=== PATIENT | male | born 1975 | race African-American/Black ===

== ENCOUNTER 2021-06-01 13:16 | Inpatient (IN) | payer OTHER ==
[2021-06-01 15:17] VITALS: BMI 24.3
[2021-06-01] MEDS ORDERED: guaiFENesin 200 MG/10 ML 10 ML UNIT-DOSE CUPS PO PRN (17:11)
[2021-06-01] MEDS ORDERED: ACETAMINOPHEN 325 MG TABLET (FP) PO PRN (17:11)
[2021-06-01] MEDS ORDERED: P-EPHED 60MG/TRIPROLIDI 2.5MG TABLET PO PRN (17:11)
[2021-06-01] MEDS ORDERED: LOPERAMIDE HCL 2 MG CAPSULE PO PRN (17:11)
[2021-06-01] MEDS ORDERED: MAG HYDROX/AL HYDROX/SIMETH 30 ML UNIT-DOSE CUP PO PRN (17:11)
[2021-06-01] MEDS ORDERED: MAGNESIUM HYDROX 2400MG/30ML ORAL SUSPENSION 30 ML CUP PO PRN (17:11)
[2021-06-01] MEDS ORDERED: MAGNESIUM CITRATE 300 ML BOTTLE PO PRN (17:11)
[2021-06-01] MEDS ORDERED: TUBERCULIN PPD 5 TU/0.1ML VIAL ID ONE (19:33)
[2021-06-01] MEDS: PRENATAL VITAMINS W/ FOLIC ACID TABLET (FP) PO SCH (19:45)
[2021-06-01] MEDS: THIAMINE HCL 100 MG TABLET (FP) PO SCH (23:44)
[2021-06-01] MEDS: MELATONIN 5 MG TABLETS PO SCH (23:44)
[2021-06-02] MEDS ORDERED: PT OWN MED DRAWER 7, Y5N ONE (06:26)
[2021-06-02] MEDS: LEVOTHYROXINE NA 88 MCG TABLET (FP) PO SCH (06:27)
[2021-06-02] MEDS: PRENATAL VITAMINS W/ FOLIC ACID TABLET (FP) PO SCH (10:45)
[2021-06-02 12:12] LABS: HEMATOCRIT 43.3 % (35.4-49); HEMOGLOBIN 14.2 GM/dL (11.7-16.9); MCH 28.4 pg (25.7-33.7); MCHC 32.8 g/dl (32.0-35.9); MEAN CELL VOLUME 86.8 fl (80-96); MEAN PLT VOLUME 10.6 fl (7.5-11.1); PLATELET COUNT 179 10^3/uL (134-434); RBC 4.98 M/mm3 (4.00-5.60); RDW 13.6 % (11.9-15.9); WHITE BLOOD COUNT 3.4 K/mm3 (4.0-10.0)
[2021-06-02 12:44] LABS: BLOOD UREA NITROGEN 11.9 mg/dL (7-18); CALCIUM 8.9 mg/dL (8.5-10.1)
[2021-06-02 12:45] LABS: ALBUMIN 3.5 g/dl (3.4-5.0)
[2021-06-02 12:47] LABS: CREATININE 0.9 mg/dL (0.55-1.3)
[2021-06-02 12:49] LABS: BILIRUBIN,TOTAL 0.8 mg/dL (0.2-1); TOT PROT 6.4 g/dl (6.4-8.2)
[2021-06-02 16:46] LABS: PH,URINE 5.5 (5.0-8.0); URINE APPEARANCE CLEAR; URINE BILIRUBIN NEGATIVE (NEGATIVE); URINE COLOR YELLOW; URINE GLUCOSE (UA) NEGATIVE (NEGATIVE); URINE KETONE NEGATIVE (NEGATIVE); URINE LEUK ESTERASE NEGATIVE (NEGATIVE); URINE NITRITE NEGATIVE (NEGATIVE); URINE PROTEIN NEGATIVE (NEGATIVE); URINE UROBILINOGEN 0.2 mg/dL (0.2-1.0)
[2021-06-02] MEDS: MELATONIN 5 MG TABLETS PO SCH (21:10)
[2021-06-02] MEDS: THIAMINE HCL 100 MG TABLET (FP) PO SCH (21:11)
[2021-06-03] MEDS ORDERED: PT OWN MED DRAWER 7, Y5N ONE (02:54)
[2021-06-03] MEDS: LEVOTHYROXINE NA 88 MCG TABLET (FP) PO SCH (06:16)
[2021-06-03] MEDS: PRENATAL VITAMINS W/ FOLIC ACID TABLET (FP) PO SCH (09:52)
[2021-06-03] MEDS: MELATONIN 5 MG TABLETS PO SCH (23:00)
[2021-06-03] MEDS: THIAMINE HCL 100 MG TABLET (FP) PO SCH (23:00)
[2021-06-04] MEDS ORDERED: PT OWN MED DRAWER 7, Y5N ONE (02:40)
[2021-06-04] MEDS: LEVOTHYROXINE NA 88 MCG TABLET (FP) PO SCH (06:35)
[2021-06-04] MEDS: PRENATAL VITAMINS W/ FOLIC ACID TABLET (FP) PO SCH (09:41)
[2021-06-04] MEDS: THIAMINE HCL 100 MG TABLET (FP) PO SCH (23:23)
[2021-06-04] MEDS: MELATONIN 5 MG TABLETS PO SCH (23:23)
[2021-06-05] MEDS ORDERED: PT OWN MED DRAWER 7, Y5N ONE (03:35)
[2021-06-05] MEDS: LEVOTHYROXINE NA 88 MCG TABLET (FP) PO SCH (06:19)
[2021-06-05] MEDS: PRENATAL VITAMINS W/ FOLIC ACID TABLET (FP) PO SCH (10:16)
[2021-06-05 14:07] LABS: SARS-CoV-2 NAA Not Detected (Not Detected)
[2021-06-05] MEDS: BACITRACIN 0.9 GM PACKET TP SCH (21:44)
[2021-06-05] MEDS: THIAMINE HCL 100 MG TABLET (FP) PO SCH (21:45)
[2021-06-05] MEDS: MELATONIN 5 MG TABLETS PO SCH (21:45)
[2021-06-06] MEDS ORDERED: PT OWN MED DRAWER 7, Y5N ONE (04:00)
[2021-06-06] MEDS: LEVOTHYROXINE NA 88 MCG TABLET (FP) PO SCH (06:24)
[2021-06-06] MEDS: PRENATAL VITAMINS W/ FOLIC ACID TABLET (FP) PO SCH (09:48)
[2021-06-06] MEDS: BACITRACIN 0.9 GM PACKET TP SCH ×2 (09:48→21:54)
[2021-06-06] MEDS: THIAMINE HCL 100 MG TABLET (FP) PO SCH (21:54)
[2021-06-06] MEDS: MELATONIN 5 MG TABLETS PO SCH (21:54)
[2021-06-07] MEDS ORDERED: PT OWN MED DRAWER 7, Y5N ONE (03:58)
[2021-06-07] MEDS: LEVOTHYROXINE NA 88 MCG TABLET (FP) PO SCH (06:25)
[2021-06-07] MEDS: PRENATAL VITAMINS W/ FOLIC ACID TABLET (FP) PO SCH (09:39)
[2021-06-07] MEDS: BACITRACIN 0.9 GM PACKET TP SCH ×2 (09:39→21:44)
[2021-06-07] MEDS ORDERED: COLLOIDAL OATMEAL 1 BAR EACH TP PRN (09:40)
[2021-06-07] MEDS: MELATONIN 5 MG TABLETS PO SCH (21:44)
[2021-06-07] MEDS: THIAMINE HCL 100 MG TABLET (FP) PO SCH (21:44)
[2021-06-08] MEDS ORDERED: PT OWN MED DRAWER 7, Y5N ONE (03:01)
[2021-06-08] MEDS: LEVOTHYROXINE NA 88 MCG TABLET (FP) PO SCH (06:03)
[2021-06-08] MEDS: PRENATAL VITAMINS W/ FOLIC ACID TABLET (FP) PO SCH (10:23)
[2021-06-08] MEDS: BACITRACIN 0.9 GM PACKET TP SCH ×2 (10:23→21:27)
[2021-06-08] MEDS: THIAMINE HCL 100 MG TABLET (FP) PO SCH (21:26)
[2021-06-08] MEDS: MELATONIN 5 MG TABLETS PO SCH (21:26)
[2021-06-09] MEDS ORDERED: PT OWN MED DRAWER 7, Y5N ONE (02:19)
[2021-06-09] MEDS: LEVOTHYROXINE NA 88 MCG TABLET (FP) PO SCH (06:55)
[2021-06-09] MEDS: PRENATAL VITAMINS W/ FOLIC ACID TABLET (FP) PO SCH (09:22)
[2021-06-09] MEDS: BACITRACIN 0.9 GM PACKET TP SCH ×2 (09:22→21:17)
[2021-06-09] MEDS: MELATONIN 5 MG TABLETS PO SCH (21:17)
[2021-06-09] MEDS: THIAMINE HCL 100 MG TABLET (FP) PO SCH (21:17)
[2021-06-10] MEDS ORDERED: PT OWN MED DRAWER 7, Y5N ONE (02:55)
[2021-06-10] MEDS: LEVOTHYROXINE NA 88 MCG TABLET (FP) PO SCH (06:10)
[2021-06-10] MEDS: PRENATAL VITAMINS W/ FOLIC ACID TABLET (FP) PO SCH (09:30)
[2021-06-10] MEDS: BACITRACIN 0.9 GM PACKET TP SCH ×2 (09:30→21:05)
[2021-06-10] MEDS: MELATONIN 5 MG TABLETS PO SCH (21:05)
[2021-06-10] MEDS: THIAMINE HCL 100 MG TABLET (FP) PO SCH (21:05)
[2021-06-11] MEDS ORDERED: PT OWN MED DRAWER 7, Y5N ONE (04:39)
[2021-06-11] MEDS: LEVOTHYROXINE NA 88 MCG TABLET (FP) PO SCH (06:13)
[2021-06-11] MEDS: BACITRACIN 0.9 GM PACKET TP SCH ×2 (10:03→21:07)
[2021-06-11] MEDS: PRENATAL VITAMINS W/ FOLIC ACID TABLET (FP) PO SCH (10:03)
[2021-06-11] MEDS: THIAMINE HCL 100 MG TABLET (FP) PO SCH (21:07)
[2021-06-11] MEDS: MELATONIN 5 MG TABLETS PO SCH (21:09)
[2021-06-12] MEDS ORDERED: PT OWN MED DRAWER 7, Y5N ONE (04:06)
[2021-06-12] MEDS: LEVOTHYROXINE NA 88 MCG TABLET (FP) PO SCH (06:05)
[2021-06-12] MEDS: PRENATAL VITAMINS W/ FOLIC ACID TABLET (FP) PO SCH (09:37)
[2021-06-12] MEDS: BACITRACIN 0.9 GM PACKET TP SCH ×2 (09:37→21:49)
[2021-06-12] MEDS: MELATONIN 5 MG TABLETS PO SCH (21:49)
[2021-06-12] MEDS: THIAMINE HCL 100 MG TABLET (FP) PO SCH (21:49)
[2021-06-12] MEDS: IBUPROFEN 400 MG TABLET (FP) PO PRN (23:06)
[2021-06-13] MEDS ORDERED: PT OWN MED DRAWER 7, Y5N ONE (03:00)
[2021-06-13] MEDS: IBUPROFEN 400 MG TABLET (FP) PO PRN (06:06)
[2021-06-13] MEDS: LEVOTHYROXINE NA 88 MCG TABLET (FP) PO SCH (06:06)
[2021-06-13] MEDS: BACITRACIN 0.9 GM PACKET TP SCH ×2 (09:50→21:18)
[2021-06-13] MEDS: METHOCARBAMOL 500 MG TABLET PO PRN ×2 (10:21→21:18)
[2021-06-13] MEDS: METHYL SALICYLATE/MENTHOL OINT 30 GM TUBE TP SCH ×2 (11:27→21:18)
[2021-06-13] MEDS: PRENATAL VITAMINS W/ FOLIC ACID TABLET (FP) PO SCH (11:27)
[2021-06-13] MEDS: THIAMINE HCL 100 MG TABLET (FP) PO SCH (21:18)
[2021-06-13] MEDS: MELATONIN 5 MG TABLETS PO SCH (21:18)
[2021-06-14] MEDS ORDERED: PT OWN MED DRAWER 7, Y5N ONE (04:44)
[2021-06-14] MEDS: LEVOTHYROXINE NA 88 MCG TABLET (FP) PO SCH (06:07)
[2021-06-14] MEDS: METHOCARBAMOL 500 MG TABLET PO PRN ×2 (06:08→21:19)
[2021-06-14] MEDS: PRENATAL VITAMINS W/ FOLIC ACID TABLET (FP) PO SCH (09:43)
[2021-06-14] MEDS: BACITRACIN 0.9 GM PACKET TP SCH ×2 (09:44→21:18)
[2021-06-14] MEDS: METHYL SALICYLATE/MENTHOL OINT 30 GM TUBE TP SCH ×2 (09:44→21:19)
[2021-06-14] MEDS: MELATONIN 5 MG TABLETS PO SCH (21:17)
[2021-06-14] MEDS: THIAMINE HCL 100 MG TABLET (FP) PO SCH (21:18)
[2021-06-15] MEDS ORDERED: PT OWN MED DRAWER 7, Y5N ONE (03:03)
[2021-06-15] MEDS: LEVOTHYROXINE NA 88 MCG TABLET (FP) PO SCH (06:06)
[2021-06-15 06:35] VITALS: BP 118/71; PULSE 89; TEMP 96.9
== END 2021-06-15 09:07 | disposition home or self-care (01) | DRG 772 ==
LOC: YASAS 13:16 → Y3E 17:15
PROVIDERS: ADMIT Allergy & Immunology; ATTEND Allergy & Immunology
PROC: HZ42ZZZ Group Counseling for Substance Abuse Treatment, Cognitive-Behavioral (ICD-10-PCS; principal; 2021-06-01)
DX: F16.20 Hallucinogen dependence, uncomplicated (principal); F17.210 Nicotine dependence, cigarettes, uncomplicated; J45.909 Unspecified asthma, uncomplicated; E03.9 Hypothyroidism, unspecified; M25.511 Pain in right shoulder; S61.502A Unspecified open wound of left wrist, initial encounter; W22.8XXA Striking against or struck by other objects, initial encounter; Y93.9 Activity, unspecified; Y92.239 Unspecified place in hospital as the place of occurrence of the external cause; Z59.01 Sheltered homelessness
CPT/HCPCS: 36415; 80053; 81003; 85027; 86780; 87811; C9803; U0003; U0005

== ENCOUNTER 2021-08-02 11:41 | Inpatient (IN) | payer OTHER ==
[2021-08-02] MEDS ORDERED: LOPERAMIDE HCL 2 MG CAPSULE PO PRN (12:46)
[2021-08-02] MEDS ORDERED: MAGNESIUM HYDROX 2400MG/30ML ORAL SUSPENSION 30 ML CUP PO PRN (12:46)
[2021-08-02] MEDS ORDERED: MAGNESIUM CITRATE 300 ML BOTTLE PO PRN (12:46)
[2021-08-02] MEDS ORDERED: guaiFENesin 200 MG/10 ML 10 ML UNIT-DOSE CUPS PO PRN (12:46)
[2021-08-02] MEDS ORDERED: P-EPHED 60MG/TRIPROLIDI 2.5MG TABLET PO PRN (12:46)
[2021-08-02] MEDS ORDERED: MAG HYDROX/AL HYDROX/SIMETH 30 ML UNIT-DOSE CUP PO PRN (12:46)
[2021-08-02] MEDS ORDERED: ACETAMINOPHEN 325 MG TABLET (FP) PO PRN (12:46)
[2021-08-02 13:38] VITALS: BMI 22.0
[2021-08-02] MEDS: hydrOXYzine PAMOATE 25 MG CAPSULE (FP) PO SCH ×3 (18:29→21:56)
[2021-08-02] MEDS: MELATONIN 5 MG TABLETS PO SCH (21:56)
[2021-08-02] MEDS: THIAMINE HCL 100 MG TABLET (FP) PO SCH (21:56)
[2021-08-03] MEDS: hydrOXYzine PAMOATE 25 MG CAPSULE (FP) PO SCH ×5 (07:16→22:49)
[2021-08-03] MEDS: LEVOTHYROXINE NA 88 MCG TABLET (FP) PO SCH (09:34)
[2021-08-03] MEDS: PRENATAL VITAMINS W/ FOLIC ACID TABLET (FP) PO SCH (09:35)
[2021-08-03] MEDS: NICOTINE 7 MG/24 HOURS TOPICAL PATCH TD SCH (09:35)
[2021-08-03] MEDS ORDERED: COLLOIDAL OATMEAL 1 BAR EACH TP PRN (09:40)
[2021-08-03] MEDS: THIAMINE HCL 100 MG TABLET (FP) PO SCH (22:49)
[2021-08-03] MEDS: MELATONIN 5 MG TABLETS PO SCH (22:49)
[2021-08-04] MEDS: LEVOTHYROXINE NA 88 MCG TABLET (FP) PO SCH (06:27)
[2021-08-04] MEDS: hydrOXYzine PAMOATE 25 MG CAPSULE (FP) PO SCH ×5 (06:28→21:46)
[2021-08-04] MEDS: AMMONIUM LACTATE 12% LOTION 225 GM BOTTLE TP PRN (06:32)
[2021-08-04] MEDS: NICOTINE 7 MG/24 HOURS TOPICAL PATCH TD SCH (11:02)
[2021-08-04] MEDS: PRENATAL VITAMINS W/ FOLIC ACID TABLET (FP) PO SCH (11:02)
[2021-08-04] MEDS: NICOTINE 10 MG CARTRIDGE (INHALER) IH PRN (11:03)
[2021-08-04] MEDS: THIAMINE HCL 100 MG TABLET (FP) PO SCH (21:46)
[2021-08-04] MEDS: MELATONIN 5 MG TABLETS PO SCH (21:46)
[2021-08-05] MEDS: AMMONIUM LACTATE 12% LOTION 225 GM BOTTLE TP PRN (06:13)
[2021-08-05] MEDS: LEVOTHYROXINE NA 88 MCG TABLET (FP) PO SCH (06:13)
[2021-08-05] MEDS: hydrOXYzine PAMOATE 25 MG CAPSULE (FP) PO SCH ×5 (06:27→21:05)
[2021-08-05] MEDS: NICOTINE 7 MG/24 HOURS TOPICAL PATCH TD SCH (10:20)
[2021-08-05] MEDS: PRENATAL VITAMINS W/ FOLIC ACID TABLET (FP) PO SCH (10:20)
[2021-08-05] MEDS: MELATONIN 5 MG TABLETS PO SCH (21:05)
[2021-08-05] MEDS: THIAMINE HCL 100 MG TABLET (FP) PO SCH (21:05)
[2021-08-06] MEDS: hydrOXYzine PAMOATE 25 MG CAPSULE (FP) PO SCH ×2 (05:59→10:21)
[2021-08-06] MEDS: LEVOTHYROXINE NA 88 MCG TABLET (FP) PO SCH (06:00)
[2021-08-06] MEDS: NICOTINE 7 MG/24 HOURS TOPICAL PATCH TD SCH (10:21)
[2021-08-06] MEDS: PRENATAL VITAMINS W/ FOLIC ACID TABLET (FP) PO SCH (10:21)
[2021-08-06] MEDS ORDERED: hydrOXYzine PAMOATE 25 MG CAPSULE (FP) PO PRN (13:10)
[2021-08-06] MEDS: MELATONIN 5 MG TABLETS PO SCH (21:14)
[2021-08-06] MEDS: THIAMINE HCL 100 MG TABLET (FP) PO SCH (21:16)
[2021-08-07] MEDS: LEVOTHYROXINE NA 88 MCG TABLET (FP) PO SCH (06:16)
[2021-08-07] MEDS: PRENATAL VITAMINS W/ FOLIC ACID TABLET (FP) PO SCH (09:38)
[2021-08-07] MEDS: NICOTINE 7 MG/24 HOURS TOPICAL PATCH TD SCH (09:38)
[2021-08-07] MEDS: THIAMINE HCL 100 MG TABLET (FP) PO SCH (23:40)
[2021-08-07] MEDS: MELATONIN 5 MG TABLETS PO SCH (23:40)
[2021-08-08] MEDS: LEVOTHYROXINE NA 88 MCG TABLET (FP) PO SCH (06:22)
[2021-08-08] MEDS: PRENATAL VITAMINS W/ FOLIC ACID TABLET (FP) PO SCH (09:27)
[2021-08-08] MEDS: NICOTINE 7 MG/24 HOURS TOPICAL PATCH TD SCH (09:27)
[2021-08-08] MEDS: MELATONIN 5 MG TABLETS PO SCH (23:07)
[2021-08-08] MEDS: THIAMINE HCL 100 MG TABLET (FP) PO SCH (23:07)
[2021-08-09] MEDS: LEVOTHYROXINE NA 88 MCG TABLET (FP) PO SCH (06:08)
[2021-08-09] MEDS: PRENATAL VITAMINS W/ FOLIC ACID TABLET (FP) PO SCH (09:28)
[2021-08-09] MEDS: IBUPROFEN 400 MG TABLET (FP) PO PRN (09:28)
[2021-08-09] MEDS: NICOTINE 7 MG/24 HOURS TOPICAL PATCH TD SCH (09:28)
[2021-08-09 14:12] LABS: PH,URINE 7.5 (5.0-8.0); URINE APPEARANCE CLEAR; URINE BILIRUBIN NEGATIVE (NEGATIVE); URINE COLOR YELLOW; URINE GLUCOSE (UA) NEGATIVE (NEGATIVE); URINE KETONE NEGATIVE (NEGATIVE); URINE LEUK ESTERASE NEGATIVE (NEGATIVE); URINE NITRITE NEGATIVE (NEGATIVE); URINE PROTEIN NEGATIVE (NEGATIVE); URINE UROBILINOGEN 0.2 mg/dL (0.2-1.0)
[2021-08-09] MEDS: THIAMINE HCL 100 MG TABLET (FP) PO SCH (21:30)
[2021-08-09] MEDS: MELATONIN 5 MG TABLETS PO SCH (21:30)
[2021-08-10] MEDS: LEVOTHYROXINE NA 88 MCG TABLET (FP) PO SCH (07:48)
[2021-08-10] MEDS: PRENATAL VITAMINS W/ FOLIC ACID TABLET (FP) PO SCH (10:03)
[2021-08-10] MEDS: NICOTINE 7 MG/24 HOURS TOPICAL PATCH TD SCH (10:03)
[2021-08-10] MEDS: AMMONIUM LACTATE 12% LOTION 225 GM BOTTLE TP PRN (10:21)
[2021-08-10] MEDS: IBUPROFEN 400 MG TABLET (FP) PO PRN (11:32)
[2021-08-10 11:56] LABS: HEMATOCRIT 40.7 % (35.4-49); HEMOGLOBIN 13.5 GM/dL (11.7-16.9); MCH 28.4 pg (25.7-33.7); MCHC 33.1 g/dl (32.0-35.9); MEAN CELL VOLUME 85.8 fl (80-96); MEAN PLT VOLUME 9.9 fl (7.5-11.1); PLATELET COUNT 204 10^3/uL (134-434); RBC 4.75 M/mm3 (4.00-5.60); RDW 14.9 % (11.9-15.9); WHITE BLOOD COUNT 4.2 K/mm3 (4.0-10.0)
[2021-08-10 13:07] LABS: ALBUMIN 3.7 g/dl (3.4-5.0)
[2021-08-10 13:09] LABS: BLOOD UREA NITROGEN 20.6 mg/dL (7-18)
[2021-08-10 13:10] LABS: CALCIUM 9.1 mg/dL (8.5-10.1); CREATININE 0.8 mg/dL (0.55-1.3)
[2021-08-10 13:12] LABS: BILIRUBIN,TOTAL 0.4 mg/dL (0.2-1); TOT PROT 6.7 g/dl (6.4-8.2)
[2021-08-10] MEDS: MELATONIN 5 MG TABLETS PO SCH (23:35)
[2021-08-10] MEDS: THIAMINE HCL 100 MG TABLET (FP) PO SCH (23:35)
[2021-08-11] MEDS: LEVOTHYROXINE NA 88 MCG TABLET (FP) PO SCH (06:41)
[2021-08-11] MEDS: PRENATAL VITAMINS W/ FOLIC ACID TABLET (FP) PO SCH (10:05)
[2021-08-11] MEDS: NICOTINE 10 MG CARTRIDGE (INHALER) IH PRN (10:05)
[2021-08-11] MEDS: NICOTINE 7 MG/24 HOURS TOPICAL PATCH TD SCH (10:05)
[2021-08-11] MEDS: MELATONIN 5 MG TABLETS PO SCH (23:33)
[2021-08-11] MEDS: THIAMINE HCL 100 MG TABLET (FP) PO SCH (23:33)
[2021-08-12] MEDS: LEVOTHYROXINE NA 88 MCG TABLET (FP) PO SCH (06:51)
[2021-08-12] MEDS: NICOTINE 7 MG/24 HOURS TOPICAL PATCH TD SCH (09:52)
[2021-08-12] MEDS: PRENATAL VITAMINS W/ FOLIC ACID TABLET (FP) PO SCH (09:52)
[2021-08-12] MEDS: MELATONIN 5 MG TABLETS PO SCH (23:20)
[2021-08-12] MEDS: THIAMINE HCL 100 MG TABLET (FP) PO SCH (23:20)
[2021-08-13] MEDS: LEVOTHYROXINE NA 88 MCG TABLET (FP) PO SCH (06:10)
[2021-08-13] MEDS: NICOTINE 7 MG/24 HOURS TOPICAL PATCH TD SCH (09:58)
[2021-08-13] MEDS: PRENATAL VITAMINS W/ FOLIC ACID TABLET (FP) PO SCH (09:58)
[2021-08-13] MEDS: AMMONIUM LACTATE 12% LOTION 225 GM BOTTLE TP PRN (21:30)
[2021-08-13] MEDS: THIAMINE HCL 100 MG TABLET (FP) PO SCH (21:31)
[2021-08-13] MEDS: MELATONIN 5 MG TABLETS PO SCH (21:31)
[2021-08-14] MEDS: LEVOTHYROXINE NA 88 MCG TABLET (FP) PO SCH (06:18)
[2021-08-14] MEDS: PRENATAL VITAMINS W/ FOLIC ACID TABLET (FP) PO SCH (10:13)
[2021-08-14] MEDS: NICOTINE 7 MG/24 HOURS TOPICAL PATCH TD SCH (10:13)
[2021-08-14] MEDS: MELATONIN 5 MG TABLETS PO SCH (22:10)
[2021-08-14] MEDS: THIAMINE HCL 100 MG TABLET (FP) PO SCH (22:10)
[2021-08-15] MEDS: LEVOTHYROXINE NA 88 MCG TABLET (FP) PO SCH (06:12)
[2021-08-15] MEDS: PRENATAL VITAMINS W/ FOLIC ACID TABLET (FP) PO SCH (09:35)
[2021-08-15] MEDS: NICOTINE 7 MG/24 HOURS TOPICAL PATCH TD SCH (09:35)
[2021-08-15] MEDS: THIAMINE HCL 100 MG TABLET (FP) PO SCH (21:44)
[2021-08-15] MEDS: MELATONIN 5 MG TABLETS PO SCH (21:44)
[2021-08-15] MEDS: AMMONIUM LACTATE 12% LOTION 225 GM BOTTLE TP PRN (21:46)
[2021-08-16] MEDS: LEVOTHYROXINE NA 88 MCG TABLET (FP) PO SCH (06:15)
[2021-08-16] MEDS: NICOTINE 7 MG/24 HOURS TOPICAL PATCH TD SCH (10:09)
[2021-08-16] MEDS: PRENATAL VITAMINS W/ FOLIC ACID TABLET (FP) PO SCH (10:09)
[2021-08-16] MEDS ORDERED: IBUPROFEN 600 MG TABLET (FP) PO PRN (13:30)
[2021-08-16] MEDS ORDERED: METHOCARBAMOL 500 MG TABLET PO PRN (13:31)
[2021-08-16] MEDS: LIDOCAINE 5% TOPICAL PATCH TP SCH (15:45)
[2021-08-16] MEDS: LIDOCAINE PATCH REMOVAL MC SCH (23:26)
[2021-08-16] MEDS: MELATONIN 5 MG TABLETS PO SCH (23:26)
[2021-08-16] MEDS: THIAMINE HCL 100 MG TABLET (FP) PO SCH (23:26)
[2021-08-17] MEDS: LEVOTHYROXINE NA 88 MCG TABLET (FP) PO SCH (06:24)
[2021-08-17] MEDS: LIDOCAINE 5% TOPICAL PATCH TP SCH (10:08)
[2021-08-17] MEDS: PRENATAL VITAMINS W/ FOLIC ACID TABLET (FP) PO SCH (10:09)
[2021-08-17] MEDS: NICOTINE 7 MG/24 HOURS TOPICAL PATCH TD SCH (10:09)
[2021-08-17] MEDS: AMMONIUM LACTATE 12% LOTION 225 GM BOTTLE TP PRN (10:10)
[2021-08-17] MEDS: BACITRACIN/POLYMYXIN OPH OINT 3.5 GM TUBE OD SCH ×3 (15:46→23:38)
[2021-08-17] MEDS: LIDOCAINE PATCH REMOVAL MC SCH (23:38)
[2021-08-17] MEDS: MELATONIN 5 MG TABLETS PO SCH (23:38)
[2021-08-17] MEDS: THIAMINE HCL 100 MG TABLET (FP) PO SCH (23:38)
[2021-08-18] MEDS: BACITRACIN/POLYMYXIN OPH OINT 3.5 GM TUBE OD SCH ×8 (01:05→23:52)
[2021-08-18] MEDS: LEVOTHYROXINE NA 88 MCG TABLET (FP) PO SCH (06:15)
[2021-08-18] MEDS: PRENATAL VITAMINS W/ FOLIC ACID TABLET (FP) PO SCH (09:08)
[2021-08-18] MEDS: NICOTINE 7 MG/24 HOURS TOPICAL PATCH TD SCH (09:52)
[2021-08-18] MEDS: LIDOCAINE 5% TOPICAL PATCH TP SCH (09:52)
[2021-08-18] MEDS: LIDOCAINE PATCH REMOVAL MC SCH (23:52)
[2021-08-18] MEDS: MELATONIN 5 MG TABLETS PO SCH (23:53)
[2021-08-18] MEDS: THIAMINE HCL 100 MG TABLET (FP) PO SCH (23:57)
[2021-08-19] MEDS: BACITRACIN/POLYMYXIN OPH OINT 3.5 GM TUBE OD SCH ×8 (00:25→21:46)
[2021-08-19] MEDS: LEVOTHYROXINE NA 88 MCG TABLET (FP) PO SCH (06:11)
[2021-08-19] MEDS: PRENATAL VITAMINS W/ FOLIC ACID TABLET (FP) PO SCH (09:48)
[2021-08-19] MEDS: NICOTINE 7 MG/24 HOURS TOPICAL PATCH TD SCH (09:48)
[2021-08-19] MEDS: LIDOCAINE 5% TOPICAL PATCH TP SCH (09:49)
[2021-08-19] MEDS: MELATONIN 5 MG TABLETS PO SCH (21:46)
[2021-08-19] MEDS: THIAMINE HCL 100 MG TABLET (FP) PO SCH (21:46)
[2021-08-19] MEDS: LIDOCAINE PATCH REMOVAL MC SCH (21:51)
[2021-08-20] MEDS: BACITRACIN/POLYMYXIN OPH OINT 3.5 GM TUBE OD SCH ×4 (00:30→09:44)
[2021-08-20] MEDS: LEVOTHYROXINE NA 88 MCG TABLET (FP) PO SCH (06:19)
[2021-08-20] MEDS: PRENATAL VITAMINS W/ FOLIC ACID TABLET (FP) PO SCH (09:43)
[2021-08-20] MEDS: NICOTINE 7 MG/24 HOURS TOPICAL PATCH TD SCH (09:44)
[2021-08-20] MEDS: LIDOCAINE 5% TOPICAL PATCH TP SCH (09:44)
[2021-08-20] MEDS: AMMONIUM LACTATE 12% LOTION 225 GM BOTTLE TP PRN (09:46)
[2021-08-20] MEDS: MELATONIN 5 MG TABLETS PO SCH (22:30)
[2021-08-20] MEDS: THIAMINE HCL 100 MG TABLET (FP) PO SCH (22:30)
[2021-08-20] MEDS: LIDOCAINE PATCH REMOVAL MC SCH (22:30)
[2021-08-21] MEDS: LEVOTHYROXINE NA 88 MCG TABLET (FP) PO SCH (06:07)
[2021-08-21] MEDS: PRENATAL VITAMINS W/ FOLIC ACID TABLET (FP) PO SCH (09:42)
[2021-08-21] MEDS: LIDOCAINE 5% TOPICAL PATCH TP SCH (09:42)
[2021-08-21] MEDS: NICOTINE 7 MG/24 HOURS TOPICAL PATCH TD SCH (09:42)
[2021-08-21] MEDS: LIDOCAINE PATCH REMOVAL MC SCH (23:49)
[2021-08-21] MEDS: MELATONIN 5 MG TABLETS PO SCH (23:50)
[2021-08-21] MEDS: THIAMINE HCL 100 MG TABLET (FP) PO SCH (23:50)
[2021-08-22] MEDS: LEVOTHYROXINE NA 88 MCG TABLET (FP) PO SCH (06:13)
[2021-08-22] MEDS: NICOTINE 7 MG/24 HOURS TOPICAL PATCH TD SCH (09:37)
[2021-08-22] MEDS: LIDOCAINE 5% TOPICAL PATCH TP SCH (09:37)
[2021-08-22] MEDS: PRENATAL VITAMINS W/ FOLIC ACID TABLET (FP) PO SCH (09:37)
[2021-08-22] MEDS: MELATONIN 5 MG TABLETS PO SCH (21:48)
[2021-08-22] MEDS: LIDOCAINE PATCH REMOVAL MC SCH (21:48)
[2021-08-22] MEDS: THIAMINE HCL 100 MG TABLET (FP) PO SCH (21:48)
[2021-08-22] MEDS: AMMONIUM LACTATE 12% LOTION 225 GM BOTTLE TP PRN (21:50)
[2021-08-23] MEDS: LEVOTHYROXINE NA 88 MCG TABLET (FP) PO SCH (06:14)
[2021-08-23] MEDS: PRENATAL VITAMINS W/ FOLIC ACID TABLET (FP) PO SCH (09:42)
[2021-08-23] MEDS: NICOTINE 7 MG/24 HOURS TOPICAL PATCH TD SCH (09:43)
[2021-08-23] MEDS: LIDOCAINE 5% TOPICAL PATCH TP SCH (09:43)
[2021-08-23] MEDS: LIDOCAINE PATCH REMOVAL MC SCH (23:00)
[2021-08-23] MEDS: MELATONIN 5 MG TABLETS PO SCH (23:00)
[2021-08-23] MEDS: THIAMINE HCL 100 MG TABLET (FP) PO SCH (23:01)
[2021-08-24] MEDS: LEVOTHYROXINE NA 88 MCG TABLET (FP) PO SCH (06:20)
[2021-08-24] MEDS: LIDOCAINE 5% TOPICAL PATCH TP SCH (09:51)
[2021-08-24] MEDS: PRENATAL VITAMINS W/ FOLIC ACID TABLET (FP) PO SCH (09:51)
[2021-08-24] MEDS: NICOTINE 7 MG/24 HOURS TOPICAL PATCH TD SCH (09:51)
[2021-08-24] MEDS: THIAMINE HCL 100 MG TABLET (FP) PO SCH (21:31)
[2021-08-24] MEDS: LIDOCAINE PATCH REMOVAL MC SCH (21:31)
[2021-08-24] MEDS: MELATONIN 5 MG TABLETS PO SCH (21:31)
[2021-08-25] MEDS: LEVOTHYROXINE NA 88 MCG TABLET (FP) PO SCH (06:04)
[2021-08-25] MEDS: PRENATAL VITAMINS W/ FOLIC ACID TABLET (FP) PO SCH (09:14)
[2021-08-25] MEDS: LIDOCAINE 5% TOPICAL PATCH TP SCH (09:14)
[2021-08-25] MEDS: NICOTINE 7 MG/24 HOURS TOPICAL PATCH TD SCH (09:15)
[2021-08-25] MEDS: LIDOCAINE PATCH REMOVAL MC SCH (22:06)
[2021-08-25] MEDS: MELATONIN 5 MG TABLETS PO SCH (22:06)
[2021-08-25] MEDS: THIAMINE HCL 100 MG TABLET (FP) PO SCH (22:06)
[2021-08-26] MEDS: LEVOTHYROXINE NA 88 MCG TABLET (FP) PO SCH (06:15)
[2021-08-26] MEDS: LIDOCAINE 5% TOPICAL PATCH TP SCH (09:35)
[2021-08-26] MEDS: PRENATAL VITAMINS W/ FOLIC ACID TABLET (FP) PO SCH (09:36)
[2021-08-26] MEDS: NICOTINE 7 MG/24 HOURS TOPICAL PATCH TD SCH (09:36)
[2021-08-26] MEDS: LIDOCAINE PATCH REMOVAL MC SCH (22:11)
[2021-08-26] MEDS: THIAMINE HCL 100 MG TABLET (FP) PO SCH (22:12)
[2021-08-26] MEDS: MELATONIN 5 MG TABLETS PO SCH (22:12)
[2021-08-27] MEDS: LEVOTHYROXINE NA 88 MCG TABLET (FP) PO SCH (06:23)
[2021-08-27] MEDS: PRENATAL VITAMINS W/ FOLIC ACID TABLET (FP) PO SCH (09:43)
[2021-08-27] MEDS: LIDOCAINE 5% TOPICAL PATCH TP SCH (09:43)
[2021-08-27] MEDS: NICOTINE 7 MG/24 HOURS TOPICAL PATCH TD SCH (09:43)
[2021-08-27] MEDS: MELATONIN 5 MG TABLETS PO SCH (22:06)
[2021-08-27] MEDS: THIAMINE HCL 100 MG TABLET (FP) PO SCH (22:06)
[2021-08-27] MEDS: LIDOCAINE PATCH REMOVAL MC SCH (23:08)
[2021-08-28] MEDS: LEVOTHYROXINE NA 88 MCG TABLET (FP) PO SCH (06:17)
[2021-08-28] MEDS: PRENATAL VITAMINS W/ FOLIC ACID TABLET (FP) PO SCH (09:52)
[2021-08-28] MEDS: AMMONIUM LACTATE 12% LOTION 225 GM BOTTLE TP PRN (09:52)
[2021-08-28] MEDS: LIDOCAINE 5% TOPICAL PATCH TP SCH (09:53)
[2021-08-28] MEDS: NICOTINE 7 MG/24 HOURS TOPICAL PATCH TD SCH (09:53)
[2021-08-28] MEDS: LIDOCAINE PATCH REMOVAL MC SCH (21:48)
[2021-08-28] MEDS: THIAMINE HCL 100 MG TABLET (FP) PO SCH (21:48)
[2021-08-28] MEDS: MELATONIN 5 MG TABLETS PO SCH (21:48)
[2021-08-29] MEDS: LEVOTHYROXINE NA 88 MCG TABLET (FP) PO SCH (06:26)
[2021-08-29 06:45] VITALS: BP 129/82; PULSE 91; TEMP 96.9
[2021-08-29] MEDS: LIDOCAINE 5% TOPICAL PATCH TP SCH (10:00)
[2021-08-29] MEDS: PRENATAL VITAMINS W/ FOLIC ACID TABLET (FP) PO SCH (10:00)
[2021-08-29] MEDS: NICOTINE 7 MG/24 HOURS TOPICAL PATCH TD SCH (10:00)
[2021-08-29] MEDS: MELATONIN 5 MG TABLETS PO SCH (22:19)
[2021-08-29] MEDS: LIDOCAINE PATCH REMOVAL MC SCH (22:19)
[2021-08-29] MEDS: THIAMINE HCL 100 MG TABLET (FP) PO SCH (22:19)
[2021-08-30] MEDS: LEVOTHYROXINE NA 88 MCG TABLET (FP) PO SCH (06:12)
[2021-08-30] MEDS: NICOTINE 7 MG/24 HOURS TOPICAL PATCH TD SCH (09:13)
[2021-08-30] MEDS: PRENATAL VITAMINS W/ FOLIC ACID TABLET (FP) PO SCH (09:13)
[2021-08-30] MEDS: LIDOCAINE 5% TOPICAL PATCH TP SCH (09:13)
== END 2021-08-30 10:15 | disposition home or self-care (01) | DRG 772 ==
LOC: YASAS 11:41 → Y6N 17:25 → Y3W 17:29 → Y3E 08-06 11:27
PROVIDERS: ADMIT Allergy & Immunology; ATTEND Allergy & Immunology
PROC: HZ42ZZZ Group Counseling for Substance Abuse Treatment, Cognitive-Behavioral (ICD-10-PCS; principal; 2021-08-02)
DX: F10.20 Alcohol dependence, uncomplicated (principal); F16.20 Hallucinogen dependence, uncomplicated; F12.20 Cannabis dependence, uncomplicated; F17.210 Nicotine dependence, cigarettes, uncomplicated; E06.9 Thyroiditis, unspecified; H00.013 Hordeolum externum right eye, unspecified eyelid; L85.3 Xerosis cutis; L30.9 Dermatitis, unspecified; B35.3 Tinea pedis; R35.0 Frequency of micturition; R39.15 Urgency of urination
CPT/HCPCS: 36415; 80053; 81003; 85027; 86780; 87086; C9803; U0003; U0005

== ENCOUNTER 2021-11-22 19:34 | Inpatient (IN) | payer OTHER ==
[2021-11-22 20:48] VITALS: BMI 20.5
[2021-11-22] MEDS ORDERED: hydrOXYzine PAMOATE 25 MG CAPSULE (FP) PO PRN (21:10)
[2021-11-22] MEDS ORDERED: LOPERAMIDE HCL 2 MG CAPSULE PO PRN (21:10)
[2021-11-22] MEDS ORDERED: MELATONIN 5 MG TABLETS PO PRN (21:10)
[2021-11-22] MEDS ORDERED: ACETAMINOPHEN 325 MG TABLET (FP) PO PRN (21:10)
[2021-11-22] MEDS ORDERED: MAGNESIUM CITRATE 300 ML BOTTLE PO PRN (21:10)
[2021-11-22] MEDS ORDERED: IBUPROFEN 400 MG TABLET (FP) PO PRN (21:10)
[2021-11-22] MEDS ORDERED: MAGNESIUM HYDROX 2400MG/30ML ORAL SUSPENSION 30 ML CUP PO PRN (21:10)
[2021-11-22] MEDS ORDERED: MAG HYDROX/AL HYDROX/SIMETH 30 ML UNIT-DOSE CUP PO PRN (21:10)
[2021-11-22] MEDS ORDERED: guaiFENesin 200 MG/10 ML 10 ML UNIT-DOSE CUPS PO PRN (21:10)
[2021-11-22] MEDS ORDERED: P-EPHED 60MG/TRIPROLIDI 2.5MG TABLET PO PRN (21:10)
[2021-11-23] MEDS: THIAMINE HCL 100 MG TABLET (FP) PO SCH ×2 (03:52→21:34)
[2021-11-23 06:52] VITALS: TEMP 97.3
[2021-11-23] MEDS: PRENATAL VITAMINS W/ FOLIC ACID TABLET (FP) PO SCH (09:41)
[2021-11-23 11:42] LABS: HEMATOCRIT 45.7 % (35.4-49); HEMOGLOBIN 14.7 GM/dL (11.7-16.9); MCH 27.9 pg (25.7-33.7); MCHC 32.2 g/dl (32.0-35.9); MEAN CELL VOLUME 86.6 fl (80-96); MEAN PLT VOLUME 10.6 fl (7.5-11.1); PLATELET COUNT 197 10^3/uL (134-434); RBC 5.28 M/mm3 (4.00-5.60); RDW 13.5 % (11.9-15.9); WHITE BLOOD COUNT 3.5 K/mm3 (4.0-10.0)
[2021-11-23 12:16] LABS: BLOOD UREA NITROGEN 22.2 mg/dL (7-18)
[2021-11-23 12:18] LABS: CREATININE 1.1 mg/dL (0.55-1.3)
[2021-11-23 12:19] LABS: CALCIUM 9.2 mg/dL (8.5-10.1); TOT PROT 7.1 g/dl (6.4-8.2)
[2021-11-23 12:20] LABS: BILIRUBIN,TOTAL 1.1 mg/dL (0.2-1)
[2021-11-24 06:42] VITALS: BP 118/79; PULSE 87
[2021-11-24] MEDS ORDERED: LEVOTHYROXINE NA 88 MCG TABLET (FP) PO SCH (07:00)
[2021-11-24] MEDS: PRENATAL VITAMINS W/ FOLIC ACID TABLET (FP) PO SCH (10:13)
== END 2021-11-24 13:39 | disposition home or self-care (01) | DRG 772 ==
LOC: YASAS 19:34 → Y3E 11-23 00:08
PROVIDERS: ADMIT Surgery; ATTEND Allergy & Immunology
PROC: HZ42ZZZ Group Counseling for Substance Abuse Treatment, Cognitive-Behavioral (ICD-10-PCS; principal; 2021-11-23)
DX: F16.20 Hallucinogen dependence, uncomplicated (principal); F12.20 Cannabis dependence, uncomplicated; F17.210 Nicotine dependence, cigarettes, uncomplicated; E03.9 Hypothyroidism, unspecified; L30.9 Dermatitis, unspecified; Z56.0 Unemployment, unspecified; Z59.01 Sheltered homelessness
CPT/HCPCS: 36415; 80053; 84443; 85027; 86780; C9803-CS; U0003; U0005

== ENCOUNTER 2022-06-14 12:33 | Emergency (ER) | payer OTHER ==
[2022-06-14 13:10] VITALS: BP 131/55; PULSE 79; RESP 20; TEMP 97.9; BMI 22.3
== END 2022-06-14 13:11 | disposition left against medical advice (07) ==
LOC: JER 12:33
DX: I49.9 Cardiac arrhythmia, unspecified (principal)
CPT/HCPCS: 93005; 93010; 99283-25

== ENCOUNTER 2023-05-13 14:57 | Emergency (ER) | payer OTHER ==
[2023-05-13 15:13] VITALS: RESP 18; BMI 18.8
[2023-05-13 18:58] LABS: EOS % 2.1 % (0-4.5); HEMATOCRIT 38.7 % (35.4-49); HEMOGLOBIN 12.9 GM/dL (11.7-16.9); LYMPH % 30.2 % (8-40); MCH 27.9 pg (25.7-33.7); MCHC 33.3 g/dl (32.0-35.9); MEAN CELL VOLUME 83.7 fl (80-96); MEAN PLT VOLUME 9.2 fl (7.5-11.1); NEUT % 53.7 % (42.8-82.8); PLATELET COUNT 228 10^3/uL (134-434); RBC 4.62 M/mm3 (4.00-5.60); WHITE BLOOD COUNT 4.5 K/mm3 (4.0-10.0)
[2023-05-13] MEDS ORDERED: DIPHTH,PERTUSS(ACELL),TET 0.5 ML DISP.SYRIN IM ONE (19:03)
[2023-05-13 19:28] LABS: CHLORIDE 106 mmol/L (98-107); SODIUM 138 mmol/L (136-145)
[2023-05-13 19:30] LABS: ALBUMIN 3.3 g/dl (3.4-5.0); ANION GAP 4 mmol/L (4-13); BLOOD UREA NITROGEN 20.6 mg/dL (7-18); CALCIUM 9.1 mg/dL (8.5-10.1); CO2 28 mmol/L (21-32); GLUCOSE,RANDOM 114 mg/dL (74-106)
[2023-05-13 19:33] LABS: CREATININE 0.9 mg/dL (0.55-1.3); SGOT/AST 76 U/L (15-37); SGPT/ALT 34 U/L (13-61)
[2023-05-13 19:35] LABS: BILIRUBIN,TOTAL 0.9 mg/dL (0.2-1); TOT PROT 6.2 g/dl (6.4-8.2)
[2023-05-13 19:36] LABS: ALK PHOS 60 U/L (45-117)
[2023-05-13 20:44] LABS: PH,URINE 5.5 (5.0-8.0); URINE APPEARANCE CLEAR; URINE BILIRUBIN NEGATIVE (NEGATIVE); URINE COLOR YELLOW; URINE GLUCOSE (UA) NEGATIVE (NEGATIVE); URINE KETONE NEGATIVE (NEGATIVE); URINE LEUK ESTERASE NEGATIVE (NEGATIVE); URINE NITRITE NEGATIVE (NEGATIVE); URINE PROTEIN NEGATIVE (NEGATIVE)
[2023-05-13 20:52] LABS: COCAINE, UR NEGATIVE (NEGATIVE); METHADONE, UR NEGATIVE (NEGATIVE); OPIATES, URI NEGATIVE (NEGATIVE); URINE AMPHETAMINES NEGATIVE (NEGATIVE)
[2023-05-13 20:57] LABS: PHENCYCLIDINE,URINE POSITIVE (NEGATIVE); URINE BARBITURATES NEGATIVE (NEGATIVE); URINE BENZODIAZEPINES POSITIVE (NEGATIVE)
[2023-05-14 07:01] VITALS: TEMP 98.4
[2023-05-14] MEDS ORDERED: LEVOTHYROXINE NA 25 MCG TABLET (FP) PO ONE (08:44)
[2023-05-14] MEDS ORDERED: LEVOTHYROXINE NA 25 MCG TABLET (FP) ONE (08:52)
[2023-05-14 12:27] VITALS: BP 114/67; PULSE 75
== END 2023-05-14 12:12 | disposition home or self-care (01) ==
LOC: JER 14:57
PROC: 3E0234Z Introduction of Serum, Toxoid and Vaccine into Muscle, Percutaneous Approach (ICD-10-PCS; principal; 2023-05-13)
DX: S01.01XA Laceration without foreign body of scalp, initial encounter (principal); S81.011A Laceration without foreign body, right knee, initial encounter; S81.012A Laceration without foreign body, left knee, initial encounter; S61.411A Laceration without foreign body of right hand, initial encounter; S61.412A Laceration without foreign body of left hand, initial encounter; X58.XXXA Exposure to other specified factors, initial encounter
CPT/HCPCS: 36415; 70450-TC; 70486-TC; 71046-TC-FY; 72125-TC; 73110-TC-LT-FY; 73110-TC-RT-FY; 73130-TC-LT-FY; 73130-TC-RT-FY; 73564-TC-LT-FY; 73564-TC-RT-FY; 80053; 80307; 81003; 85025; 90471; 90715; 93005; 93010; 99285-25